=== PATIENT | female | born 1945 | race Caucasian/White ===

== ENCOUNTER 2022-08-14 12:26 | Emergency (ER) | payer MEDICARE ==
[~2022-08-14] VITALS: Ht 152.4 cm; Wt 54.4 kg
[2022-08-14 13:19] LABS: BASOPHILS # (AUTO) 0.1 K/uL (0.0-0.2); BASOPHILS % (AUTO) 0.5 % (0.0-2.0); EOSINOPHILS % (AUTO) 0.1 % (0.0-4.0); LYMPHOCYTES # (AUTO) 1.1 K/uL (1.0-5.5); LYMPHOCYTES % (AUTO) 9.3 % (20.5-51.5); MEAN CORPUSCULAR VOLUME 86 fL (79.0-98.0); MONOCYTES # (AUTO) 0.4 K/uL (0.0-1.0); MONOCYTES % (AUTO) 3.1 % (1.7-9.3); NEUTROPHILS # (AUTO) 10.1 K/uL (1.8-7.7); PLATELET COUNT (AUTO) 189 K/uL (130-430); RED BLOOD CELL COUNT(AUTO) 4.77 MIL/uL (4.2-6.2); RED CELL DISTRIBUTION WIDTH 13.3 % (9.0-15.0); WHITE BLOOD COUNT (AUTO) 11.6 K/uL (4.8-10.8)
[2022-08-14] MEDS ORDERED: ATEN-41 PO (13:49)
[2022-08-14] MEDS ORDERED: LOVA40TA75 PO (13:49)
[2022-08-14] MEDS ORDERED: ESTRADIOL TP (13:49)
[2022-08-14] MEDS ORDERED: LOSA100T3 PO (13:49)
[2022-08-14] MEDS ORDERED: HYDR25TA4 PO (13:49)
[2022-08-14 14:39] LABS: ANION GAP 10 (5-15); CALCIUM 9.2 mg/dL (8.4-11.0); CHLORIDE 106 mmol/L (98-107); CREATININE 0.93 mg/dL (0.55-1.30); GLUCOSE 131 mg/dL (70-99); POTASSIUM 3.6 mmol/L (3.5-5.1); UREA NITROGEN, BLOOD 19 mg/dL (8-21)
[2022-08-14 14:52] LABS: ALANINE AMINOTRANSFERASE 21 U/L (12-78); ALBUMIN 3.8 g/dL (3.4-4.8); ASPARTATE AMINOTRANSFERASE 17 U/L (10-37); TOTAL BILIRUBIN 0.8 mg/dL (0.0-1.0)
[2022-08-14 15:07] LABS: ACETAMINOPHEN < 1 ug/mL (1-30); ALCOHOL, BLOOD < 3 mg/dL (<10)
[2022-08-14] MEDS ORDERED: IOHEXOL 350 mgI/mL, 150 ML INFUS..BTL IV ONE (16:10)
[2022-08-14] MEDS ORDERED: NACL 0.9% 1,000 ML IV ONE (16:15)
[2022-08-14 16:40] LABS: BARBITURATE, URINE NEGATIVE (NEG <=200); BENZODIAZEPINE, URINE NEGATIVE (NEG <=150); CANNABINOID, URINE NEGATIVE (NEG <=50); COCAINE, URINE NEGATIVE (NEG <=150); METHAMPHETAMINES SCREEN,URINE NEGATIVE (NEG <=500); OPIATE, URINE NEGATIVE (NEG <=100); PHENCYCLIDINE SCREEN,URINE NEGATIVE (NEG <=25); UR TRICYCLIC ANTIDEPRESSANTS NEGATIVE (NEG <=300); URINE AMPHETAMINE NEGATIVE (NEG <=500); URINE METHADONE NEGATIVE (NEG <=200); URINE OXYCODONE SCREEN NEGATIVE (NEG <=100); URINE PROPOXYPHENE SCREEN NEGATIVE (NEG <=300)
[2022-08-14] MEDS ORDERED: ASPIRIN 325 MG TABLET PO ONE (17:00)
[2022-08-14 21:32] VITALS: BP_SYST 145
== END 2022-08-14 21:38 | disposition home or self-care (01) ==
LOC: SED 12:26
DX: I69.314 Frontal lobe and executive function deficit following cerebral infarction (principal); R47.01 Aphasia; E11.9 Type 2 diabetes mellitus without complications; I10 Essential (primary) hypertension; Z79.899 Other long term (current) drug therapy; Z20.822 Contact with and (suspected) exposure to COVID-19
CPT/HCPCS: 99291; 70496; 87426; 80307; 80053; 82962; 85025; 85610; 85730; 87040; 84484; 36415; 93005; 71045; 83605; 70450; 76376; 96360; G0482; Q9967; J7030; G0480; G0481